=== PATIENT | female | born 1945 | race Caucasian/White ===

== ENCOUNTER → 2017-06-16 | Outpatient (CLI) | payer OTHER ==
[~2017-06-16] VITALS: Ht 162.6 cm; Wt 79.4 kg
[~2017-06-16] MED LIST: CENTRUM SILVER1 EAC4 PO
== END | disposition home or self-care (01) ==
LOC: AMB 08:07
PROC: 0DJD8ZZ Inspection of Lower Intestinal Tract, Via Natural or Artificial Opening Endoscopic (ICD-10-PCS; principal; 2017-06-16)
DX: Z12.11 Encounter for screening for malignant neoplasm of colon (principal); K57.30 Diverticulosis of large intestine without perforation or abscess without bleeding; E78.00 Pure hypercholesterolemia, unspecified; E66.9 Obesity, unspecified; Z68.32 Body mass index [BMI] 32.0-32.9, adult; M85.80 Other specified disorders of bone density and structure, unspecified site; R73.03 Prediabetes; E55.9 Vitamin D deficiency, unspecified; Z90.710 Acquired absence of both cervix and uterus
CPT/HCPCS: J2250